=== PATIENT | female | born 1965 | race Caucasian/White ===

== ENCOUNTER 2019-10-11 09:43 | Outpatient (CLI) | payer MEDICAID, SELFPAY ==
--- NOTE | 2019-10-11 10:00 | IR_ITS ---
WS: [id number] CERVICAL MYELOGRAM HISTORY: neck pain COMPARISON: 06/13/2018 and prior MRI 06/13/2018. FLUOROSCOPY TIME: 2.6 minutes. Procedure, risks and complications were explained to the patient. Risks including bleeding, infection , headaches, allergic reaction and seizures. Consent has been obtained. With the patient in prone position the skin over the lumbar region is cleansed with ChloraPrep and an esthetized with lidocaine. 22-gauge spinal needle is inserted into the thecal sac at the appropriate level determined by fluoroscopy. Omnipaque 300; 13 ml is injected slowly under fluoroscopy with no co mplications. Needle bevel is perpendicular to the longitudinal fibers of the dura. Stylet is reinsert ed prior to removal of the needle. Patient tolerated the procedure well. Patient will proceed to CT f or further evaluation. Uncomplicated injection into the lumbar subarachnoid space. Moderate degenerative changes in the lumb ar spine. Most significant disc space narrowing is at L5-S1. Calcification in the infrarenal aorta. Straightening of the normal cervical lordosis. With flexion and extension no instability is demonstra . There is very slight retrolisthesis of C3, C4 and C5 with extension less than 2 mm. IR/[place] cervical [id number] IMPRESSION: 1. Uncomplicated cervical myelogram. 2. Mild straightening of the normal cervical lordosis. During extension less t godoy 2 mm retrolisthesis of C3, C4 and C5. No significant instability. 3. Please see cervical spine CT myelogram report to follow.
[2019-10-11] MEDS: iohexol 300 mg/mL 50 mL Btl INTRATHECA (11:07)
--- NOTE | 2019-10-11 11:30 | CT_ITS ---
WS: [id number] CT CERVICAL MYELOGRAM HISTORY: Cervical disc disorder with myelopathy. Technique: All CT scans at [facility] use at least one of these dose optimization techniq ues: automated exposure control; mA and/or kV adjustment per patient size (includes targeted exams wh ere dose is matched to clinical indication); or iterative reconstruction. DLP: 2010.65 mGycm COMPARISON: MRI cervical spine 06/13/2018. Good opacification of thecal sac with contrast. Straightening of the normal cervical lordosis. Moderate degenerative disc space narrowing at C5-6. Os teophytes extend anterior and posterior from C3 through C7. No fractures. No inferior displacement of cerebellar tonsils. C1-C2: Normal. C2-C3: Small central disc protrusion without stenosis. C3-C4: Mild diffuse osteophytic ridging and a shallow central disc protrusion. Near complete effaceme nt of ventral CSF. Mild central and bilateral foraminal narrowing. C4-C5: Diffuse osteophytic ridging and annular disc bulging. Moderate LEFT paracentral disc protrusio n with near complete effacement of LEFT CSF and posterior displacement of the cord. Mild central and bilateral foraminal stenosis. C5-C6: Osteophytic ridging and annular disc bulging. Deformity on the ventral thecal sac. Disc protru yosi is greatest to the LEFT. Moderate central and bilateral foraminal stenosis. C6-C7: Osteophytic ridging and annular disc bulging. Mild bilateral foraminal narrowing. Lung apices are clear. Thyroid is negative. Extensive atherosclerosis within the visualized carotid a rteries near the bifurcation. CT/CT cervical spine w con [id number] IMPRESSION: 1. Moderate to severe cervical spondylitic changes. Osteophytic ridging and di sc bulging with deformity on the ventral thecal sac and cord from C3-4 to C5-6. 2. Most significant stenosis is at C5-6. Moderate central and bilateral forami nal stenosis with a LEFT paracentral disc protrusion. 3. Mild central and bilateral foraminal stenosis at C3-4. 4. Moderate LEFT size paracentral disc protrusion with mild encroachment upon the thecal sac at C4-5. Mild central and bilateral foraminal stenosis.
== END 2019-10-11 09:44 | disposition home or self-care (01) ==
LOC: RADWPI 09:46
PROVIDERS: Family Provider Nurse Practitioner Family; PCP Nurse Practitioner Family; Visit Provider Licensed Practical Nurse
DX: M50.020 Cervical disc disorder with myelopathy, mid-cervical region, unspecified level (principal); M47.892 Other spondylosis, cervical region; M48.02 Spinal stenosis, cervical region; M50.221 Other cervical disc displacement at C4-C5 level
CPT/HCPCS: 62302; 72040; 72126; Q9967

== ENCOUNTER 2020-03-11 12:38 | Outpatient (CLI) | payer MEDICAID, SELFPAY ==
--- NOTE | 2020-03-11 12:47 | XR_ITS ---
WS: [id number] LEFT ANKLE: 3 VIEW(S) TECHNIQUE: AP, oblique(s) and lateral. HISTORY: LEFT ANKLE PAIN COMPARISON: None available. Normal alignment. There is very small osseous densities in the joint space between the distal fibula and the talus. Mild beaking of the anterior talar process. No joint effusion or widening of the ankle mortise. No significant degenerative changes at the joint spaces. No soft tissue abnormality. XR/XR ankle LT min 3V* [id number] IMPRESSION: 1. Multiple tiny osseous densities in the fibulotalar articulation. May be fro m prior trauma. These are age indeterminate. 2. Mild spurring of the anterior talar process.
== END 2020-03-11 12:39 | disposition home or self-care (01) ==
LOC: RAD 12:41
PROVIDERS: PCP Nurse Practitioner Family; Visit Provider Nurse Practitioner Family
DX: M25.572 Pain in left ankle and joints of left foot (principal); M77.31 Calcaneal spur, right foot
CPT/HCPCS: 73610

== ENCOUNTER 2020-09-08 14:59 | Emergency (ER) | payer MEDICAID, SELFPAY ==
[2020-09-08 15:06] VITALS: BP 134/83; PULSE 82; RESP 18; TEMP 36.6; O2SAT 97; BMI 30.6
--- NOTE | 2020-09-08 15:10 | XRR_ITS ---
PROCEDURE INFORMATION: Exam: XR Left Ankle Exam date and time: 09/08/2020 3:16 PM Age: 55 years old Clinical indication: Injury or trauma; Other: Early a pop coming down steps; Sprain or strain; Ankle; Left; Additional info: Ankle injury TECHNIQUE: Imaging protocol: XR Left ankle. Views: 3 or more views. COMPARISON: CR XR ankle LT min 3V* [id number] 03/11/2020 12:54 PM FINDINGS: Bones/joints: Negative for acute bony abnormality Soft tissues: Mild soft tissue edema lateral aspect of the ankle consistent with sprain injury. XR/XR ankle LT min 3V* [id number] IMPRESSION: No acute bone abnormality. Soft tissue edema lateral ankle consistent with sprain
--- NOTE | 2020-09-08 15:20 | W.ED.EXTPRO ---
HPI - Extremity Problem General: Chief complaint: Extremity Injury, Lower Stated complaint: fall, pain and swelling in left ankle Time Seen by Provider: 09/08/20 15:20 History of Present Illness: HPI Narrative: Patient is a 55-year-old female comes to the ED with left ankle injury. Injury occurred earlier this morning. Patient says she was walking down some steps and missed a stair causing her to roll her left ankle. She says she felt a pop. She took some ibuprofen and continued working and ambulating on left leg for the rest of the day. She states the pain got worse and worse on her left ankle as she worked throughout the day. She noticed some left ankle swelling decided to come to the ED for evaluation. Associated symptoms: Deny chest pain, fever(s) or rash Review of Systems Const: Denies: fever(s), chills or fatigue Eyes: Denies: change in vision or eye discomfort ENMT: Denies: throat pain, odynophagia, nasal discharge or nasal congestion Card: Denies: chest pain, palpitations, edema, swelling of feet/ankles, dyspnea on exertion or orthopnea Resp: Denies: dyspnea, productive cough or non-productive cough GI: Denies: abdominal pain, nausea, vomiting, diarrhea, constipation or hematochezia : Denies: flank pain, dysuria or hematuria Musc: Reports: extremity pain (left ankle pain) and extremity swelling (left ankle swelling); Denies: neck pain or back pain Skin/Breast: Denies: rash or new lesions Neuro: Denies: headache(s), numbness in extremities or weakness in extremities [facility] ED PFSH: Medical History Atherosclerosis of both carotid arteries Cervical disc disorder with myelopathy of mid-cervical region Spinal stenosis, cervical region Surgical History History of appendectomy History of carpal tunnel release of both wrists Dr. Young History of tubal ligation Family History Brother COPD (chronic obstructive pulmonary disease) Heart disease Other Diabetes Hypertension Social History Smoking and tobacco status: current every day smoker cigarettes Alcohol intake: never Household members: family Marital status: Current occupational status: disabled History of recent travel: No Physical Exam Const: COMMON NORMALS: patient oriented x3 HENMT: COMMON NORMALS: normocephalic HEAD & SCALP: normocephalic MOUTH: Normal oral and palatal mucosa present THROAT: posterior oropharynx normal and uvula midline Neck/C-Spine: COMMON NORMALS: supple GENERAL: Yes normal visual inspection Resp: COMMON NORMALS: normal respiratory effort, No retractions, No use of accessory muscles and clear to auscultation bilaterally AUSCULTATION: clear to auscultation bilaterally Cardio: COMMON NORMALS: regular rate, regular rhythm, S1 normal heart sound present, S2 normal heart sound present, No gallops present (Cardio), No clicks present (Cardio), No murmurs present (Cardio) and Peripheral pulses 2+ throughout RATE: regular rate RHYTHM: regular rhythm HEART SOUNDS: S1 normal heart sound present and S2 normal heart sound present PERIPHERAL PULSES: Peripheral pulses 2+ throughout GI: COMMON NORMALS: Normal to inspection, nondistended, normoactive bowel sounds present, Soft to palpation, non-tender and no masses PALPATION: Yes Soft to palpation : COMMON NORMALS: Yes no CVA tenderness BLADDER/KIDNEY EXAM: Yes no CVA tenderness Back/Pelvis: COMMON NORMALS: no CVA tenderness Extremity: NARRATIVE EXTREMITY EXAM: Left ankle?tenderness upon the anterior aspect of the lateral malleolus and minimal edema around the ankle seen. No visible deformity or ecchymosis seen. Range of motion limited due to pain. Neurovascular intact with pedal pulse 2+. GENERAL: Yes normal exam except as noted Neuro: COMMON NORMALS: patient oriented x3 and moves all extremities Skin: GENERAL SKIN EXAM: dry skin Course Vital Signs: Vital signs: Vital Signs Temperature 98 F 09/08/20 15:06 Pulse Rate 82 09/08/20 15:06 Respiratory Rate 18 09/08/20 15:06 Blood Pressure 134/83 09/08/20 15:06 Pulse Oximetry 97 09/08/20 15:06 MDM - Extremity (Nontraumatic) MDM Narrative: Medical decision making narrative: Patient is a 55-year-old female comes to the ED with left ankle pain and injury. Patient says she rolled her ankle while walking down steps earlier today. She has been able to ambulate on left leg throughout the day but says pain is gotten worse. Exam findings showed some tenderness of the ankle but no deformity seen. Neurovascular intact distally with pedal pulse 2+. X-ray of left ankle showed no acute fractures or findings. Patient was diagnosed with an ankle sprain and sent home on crutches to help with healing. Patient told to rest ice and elevate left ankle and take [id number] ibuprofen for pain and inflammation. Use crutches and limit weightbearing for the next couple days then slowly increase weightbearing as tolerated. Follow-up with PCP in 7 to 10 days. Return to ED precautions given. Patient understood agree with plan. Imaging Data^: Xray Ortho: Attestation: I personally reviewed and interpreted this imaging study as follows: Radiologist's impression: [facility] [id number] XRay Report Signed Patient: Viola Sarkar Unit #: [id number] : [id number] Age/Sex: 55 / F ADM Date: 09/08/20 Loc: ER Room/Bed: Attending Dr: Ordering Provider/Ordering MD: Abram Burton Date of Service: 09/08/20 Procedure(s): XR ankle LT min 3V* [id number] Accession Number(s): [id number] Report Number: [id number] PROCEDURE INFORMATION: Exam: XR Left Ankle Exam date and time: 09/08/2020 3:16 PM Age: 55 years old Clinical indication: Injury or trauma; Other: Weld a pop coming down steps; Sprain or strain; Ankle; Left; Additional info: Ankle injury TECHNIQUE: Imaging protocol: XR Left ankle. Views: 3 or more views. COMPARISON: CR XR ankle LT min 3V* [id number] 03/11/2020 12:54 PM FINDINGS: Bones/joints: Negative for acute bony abnormality Soft tissues: Mild soft tissue edema lateral aspect of the ankle consistent with sprain injury. XR/XR ankle LT min 3V* [id number] IMPRESSION: No acute bone abnormality. Soft tissue edema lateral ankle consistent with sprain Dictated By: Alexsander Patel Signed By: Alexsander Patel Signed Date/Time: 09/08/20 1558 DD/ Discharge Plan Discharge Patient Disposition: Home Clinical Impression: Ankle sprain and strain Condition: Stable Prescriptions: No Action rosuvastatin 10 mg tablet 10 mg PO DAILY RF: 0 bupropion HCl [Wellbutrin XL] 150 mg tablet extended release 24 hr 150 mg PO QAM RF: 0 tizanidine 4 mg capsule 4 mg PO TID PRNRF: 0 hydrocodone-acetaminophen [[place]] 7.5-325 mg tablet 1 tab PO Q8H PRNRF: 0 atenolol 50 mg tablet 50 mg PO DAILY RF: 0 spironolactone 25 mg tablet 25 mg PO DAILY RF: 0 gemfibrozil 600 mg tablet 600 mg PO BID RF: 0 venlafaxine [Effexor XR] 75 mg capsule,extended release 24hr 75 mg PO DAILY RF: 0 alprazolam [Xanax] 1 mg tablet 1 mg PO TID PRNRF: 0 furosemide 20 mg tablet 20 mg PO DAILY RF: 0 metoclopramide HCl 10 mg tablet 10 mg PO TID PRNRF: 0 metformin 1,000 mg tablet 1,000 mg PO BID RF: 0 fluticasone propionate [Flonase Allergy Relief] 50 mcg/actuation spray,suspension 1 spray INTRANASAL BID RF: 0 montelukast [Singulair] 10 mg tablet 10 mg PO DAILY RF: 0 albuterol sulfate [ProAir HFA] 90 mcg/actuation HFA aerosol inhaler 2 puff INHALATION Q6H PRNRF: 0 hydroxyzine HCl 10 mg tablet 10 mg PO BID PRNRF: 0 pantoprazole 40 mg tablet,delayed release (DR/EC) 40 mg PO BID RF: 0 cetirizine [Zyrtec] 10 mg tablet 10 mg PO DAILY RF: 0 triamterene-hydrochlorothiazid 37.5-25 mg tablet 1 tab PO DAILY RF: 0 Discharge Orders: Discharge ED (Routine); Ordered 09/08/20 Ordered By: Abram Burton Referrals: Lindsey Ojeda APN [Primary Care Provider] - Discharge Diet: Regular Discharge Activity: Limit activity as instructed and Use walker/crutches as instructed Patient Instructions: Ankle Sprain (ED) Activity Restrictions/Additional Instructions: Follow-up with medical provider as directed in 7 to 10 days for reevaluation. Use crutches to allow ankle to rest and heal for the next couple days then increase weightbearing as tolerated. Rest, ice and elevate left ankle to help with symptoms. Take [id number] ibuprofen for pain and inflammation. Return to the ER or your medical provider if condition worsens. Please read and understand discharge instructions. If any questions, please ask. Coding Level of Care Code ED Washroom Cleaner for Joana Fwsubhash Exam Comprehensive
[2020-09-08] MEDS: HYDROcodone-acetaminophen 7.5-325 mg Tablet 1 TAB PO (16:15)
== END 2020-09-08 16:18 | disposition home or self-care (01) ==
PROVIDERS: Emergency Provider Physician Assistant; PCP Nurse Practitioner Family
DX: S93.402A Sprain of unspecified ligament of left ankle, initial encounter (principal); S96.912A Strain of unspecified muscle and tendon at ankle and foot level, left foot, initial encounter; F17.210 Nicotine dependence, cigarettes, uncomplicated; X50.1XXA Overexertion from prolonged static or awkward postures, initial encounter
CPT/HCPCS: 12345; 73610; 99281; 99283; E0114